=== PATIENT | male | born 1955 ===

== ENCOUNTER 2021-12-25 13:54 | Emergency (ER) | payer SELFPAY ==
[~2021-12-25] VITALS: Ht 177.8 cm; Wt 72.7 kg
[2021-12-25 20:35] VITALS: BP 132/88
== END 2021-12-25 21:02 | disposition home or self-care (01) ==
LOC: EMS 13:57
DX: R41.82 Altered mental status, unspecified (principal); F10.20 Alcohol dependence, uncomplicated
CPT/HCPCS: 99285; Z7502